=== PATIENT | female | born 1970 | race Caucasian/White ===

== ENCOUNTER 2023-04-04 06:51 | Day surgery (SDC) | payer OTHER ==
[2023-04-03 16:21] LABS: BILIRUBIN,URINE NEGATIVE (Neg); CLARITY,URINE SLIGHTLY CLOUDY (Clear); COLOR,URINE YELLOW (Yellow); GLUCOSE, URINE NEGATIVE (Neg); KETONES,URINE NEGATIVE (Neg); LEUKOCYTE ESTERASE ,URINE NEGATIVE (Neg); NITRITES, URINE NEGATIVE (Neg); OCCULT BLOOD,URINE NEGATIVE (Neg); PH,URINE 5.5 (4.8-8.0); PROTEIN,URINE NEGATIVE (Neg); UROBILINOGEN,URINE 0.2 E.U/dL (0.2-1.0)
[2023-04-03 16:24] LABS: BASOPHILS % (AUTO) 0.5 % (0-1); EOSINOPHILS # (AUTO) 0.1 X10'3 (0-0.9); EOSINOPHILS % (AUTO) 1.9 % (0-6); LYMPHOCYTES # (AUTO) 1.5 X10'3 (1.1-4.8); LYMPHOCYTES % (AUTO) 33.2 % (21-51); MEAN CORPUSCULAR HEMOGLOBIN 31.5 PG (27.0-31.0); MEAN CORPUSCULAR HGB CONC 33.2 g/dL (33.0-36.5); MEAN CORPUSCULAR VOLUME 94.8 FL (78-98); MEAN PLATELET VOLUME 6.6 FL (7.4-10.4); MONOCYTES # (AUTO) 0.3 X10'3 (0-0.9); MONOCYTES % (AUTO) 7.5 % (2-12); NEUTROPHILS # (AUTO) 2.6 X10'3 (1.8-7.7); NEUTROPHILS % (AUTO) 56.9 % (42-75); PRE OP HEMATOCRIT 36.8 % (35.0-45.0); PRE OP HEMOGLOBIN 12.2 g/dL (12.0-16.0); PRE OP PLATELET COUNT 409 X10'3 (140-440); PRE OP WHITE BLOOD COUNT 4.6 10'3 (4.8-10.8); RED BLOOD COUNT 3.89 X10'6 (4.20-5.60); RED CELL DISTRIBUTION WIDTH 13.2 % (11.5-14.5)
[2023-04-03 16:30] LABS: ALBUMIN 3.4 G/DL (3.4-5.0); ALKALINE PHOSPHATASE 59 IU/L (46-116); BLOOD UREA NITROGEN 23 MG/DL (7-18); BUN/CREATININE RATIO 20.7 (10.0-20.0); CALCIUM 8.8 MG/DL (8.5-10.1); CHLORIDE 107 MMOL/L (99-107); CREATININE 1.11 MG/DL (0.40-0.90); PRE OP ALT 27 U/L (30-65); PRE OP ANION GAP 7 (8-16); PRE OP AST 15 U/L (10-37); PRE OP BILIRUB, TOTAL 0.5 MG/DL (0.0-1.0); PRE OP GLUCOSE 117 MG/DL (70-104); PRE OP POTASSIUM 3.8 MMOL/L (3.4-5.1); PRE OP SODIUM 143 MMOL/L (135-145); TOTAL CARBON DIOXIDE 29.5 MMOL/L (24-32); TOTAL PROTEIN 6.8 G/DL (6.4-8.2); eGFR 51 ML/MIN
[2023-04-03 16:41] LABS: UA COLLECTION TYPE CLN CATCH MIDSTREAM
[2023-04-03 16:42] LABS: BACTERIA,URINE FEW /HPF (Neg); MUCUS STRANDS MODERATE /LPF (Neg); RBC,URINE NONE SEEN /HPF (0-2); SQUAMOUS EPITHELIAL CELL,UR FEW /LPF (FEW); WBC,URINE 0-4 /HPF (0-4)
[2023-04-04] VITALS (11 sets, daily range): BP systolic 108–125; BP diastolic 72–83; PULSE 78–105; RESP 8–18; TEMP 98.2; O2SAT 93–100
[~2023-04-04] VITALS: Ht 165.1 cm; Wt 89.0 kg
[~2023-04-04 06:51] MED LIST: DIPH25CA83 PO; NAPR220T67 PO; TRAZ-256 PO
[2023-04-04] MEDS ORDERED: ringers solution, lacted 1,000 ML IV SCH ×2 (07:32→08:30)
[2023-04-04] MEDS ORDERED: clindamycin-Cleocin 900mg/D5W 50 ML IV ONE (07:32)
[2023-04-04] MEDS ORDERED: famotidine 20mg tablet PO ONE (07:32)
[2023-04-04] MEDS ORDERED: sevoflurane 250ml liquid IH ONE (07:40)
[2023-04-04] MEDS ORDERED: gentamicin inj 350 MG in normal saline 100ml IV soln 91.25 ML IV ONE (08:20)
[2023-04-04] MEDS ORDERED: proCHLORperazine 10 MG/2 ml inj IV PRN (08:30)
[2023-04-04] MEDS ORDERED: ondansetron/PF 4mg/2ml inj IV PRN (08:30)
[2023-04-04] MEDS ORDERED: morphine 4 MG/ML inj SYRINge IV PRN (08:30)
[2023-04-04] MEDS ORDERED: morphine 2 MG/ML inj. syringe IV PRN (08:30)
[2023-04-04] MEDS ORDERED: meperidine/PF 25mg/ml syringe IV PRN ×3 (08:30)
[2023-04-04] MEDS ORDERED: LIDOcaine 1% (10mg/ml) 2ml vial ONE (08:32)
[2023-04-04] MEDS ORDERED: midazolam 1 mg/ML 2ml injection ONE (08:39)
[2023-04-04] MEDS ORDERED: fentaNYL/PF 50MCG/1 ML 2ML syringe ONE (08:39)
[2023-04-04] MEDS ORDERED: ondansetron/PF 4mg/2ml inj ONE (08:41)
[2023-04-04] MEDS ORDERED: propofol inj 20 ML IV ONE (08:41)
[2023-04-04] MEDS ORDERED: LIDOcaine 2% (20mg/ml) 5ml vial ONE (08:41)
[2023-04-04] MEDS ORDERED: rocuronium 10mg/ml inj IV ONE (08:41)
[2023-04-04] MEDS ORDERED: dexamethasone sod phosphate 4mg/ml inj. ONE (08:41)
[2023-04-04] MEDS ORDERED: glycopyrrolate 0.2mg/ml inj ONE (09:10)
[2023-04-04] MEDS ORDERED: neostigmine methylsulfate 1 MG/ML 10ml vial ONE (09:10)
[2023-04-04] MEDS ORDERED: sugammadex 200mg/2ml injection IV ONE (09:12)
--- NOTE | 2023-04-04 09:38 | NUR ---
Received from OR via jin, accompanied by Anesthesiologist Onael and report given by Anesthesiolgist. Pt is awake and responsive. Arrived on SM 100% fio2, o2 sat 100%. VS stable. States 08/28 pain denies need for pain medication. LR 100cc running in Lft. PIV. Pt states is comfortable. Pad in perineal area no bleeding present. Will continue to monitor patient. Addendum: 04/04/23 at 0942 by Caitlyn Awad RN Amended: Links added.
--- NOTE | 2023-04-04 10:43 | NUR ---
Pt A/O, denied pain, VSS, pad CDI, ambulated to vehicle without incident, taken home by friend Danielle. Addendum: 04/04/23 at 1045 by Caitlyn Awad RN Amended: Links added.
== END 2023-04-04 10:18 | disposition home or self-care (01) ==
LOC: PAS 06:51
PROVIDERS: ATTEND Obstetrics & Gynecology Obstetrics
DX: N95.0 Postmenopausal bleeding (principal); M19.90 Unspecified osteoarthritis, unspecified site; N18.30 Chronic kidney disease, stage 3 unspecified; Z85.3 Personal history of malignant neoplasm of breast; Z96.612 Presence of left artificial shoulder joint; Z90.49 Acquired absence of other specified parts of digestive tract; Z98.890 Other specified postprocedural states; Z88.0 Allergy status to penicillin; Z88.1 Allergy status to other antibiotic agents; Z79.899 Other long term (current) drug therapy
CPT/HCPCS: 36415; 58558; 71046; 80053; 81001; 82948; 85025; 86885; 86900; 86901; 93005; A6258; J1100; J2250; J2405; J2704; J3010; J3490; J7030; J7120; Z7506; Z7512; A4355; A4618; A7000; J2710

== ENCOUNTER 2024-09-10 06:30 | Outpatient (CLI) | payer OTHER | END 2024-09-10 23:59 | disposition home or self-care (01) | LOC: MRI02 06:30 | PROVIDERS: ATTEND Family Medicine | DX: S49.91XA Unspecified injury of right shoulder and upper arm, initial encounter (principal); M51.369 Other intervertebral disc degeneration, lumbar region without mention of lumbar back pain or lower extremity pain; M22.42 Chondromalacia patellae, left knee; M47.817 Spondylosis without myelopathy or radiculopathy, lumbosacral region; M48.061 Spinal stenosis, lumbar region without neurogenic claudication; M25.462 Effusion, left knee; M71.22 Synovial cyst of popliteal space [Baker], left knee; M75.51 Bursitis of right shoulder; M19.011 Primary osteoarthritis, right shoulder; M25.811 Other specified joint disorders, right shoulder; M65.811 Other synovitis and tenosynovitis, right shoulder; M54.50 Low back pain, unspecified; X58.XXXA Exposure to other specified factors, initial encounter; Y93.89 Activity, other specified; Y92.89 Other specified places as the place of occurrence of the external cause; Y99.8 Other external cause status | CPT/HCPCS: 72148; 73221; 73721 ==

== ENCOUNTER 2025-07-26 08:34 | Outpatient (CLI) | payer BC ==
[2025-07-26] MEDS ORDERED: iohexol 300mg/ml 100ml inj. ONE (09:21)
--- NOTE | 2025-07-26 11:25 | RADIOLOGY REPORT ---
CLINICAL HISTORY: INTESTINAL ADHESIONS [BANDS] WITH COMPLETE OBSTRUCTION TECHNIQUE: CT of the abdomen and pelvis was performed without IV contrast. This exam was performed according to our departmental dose optimization program. Up-to-date CT equipment and radiation dose reduction techniques are utilized as appropriate. CTDI 13 DLP 692 COMPARISON: None FINDINGS: Abdomen/Pelvis: The spleen, adrenal glands, kidneys, liver, pancreas, uterus, and bladder are unremarkable. The gallbladder is absent. The abdominal aorta is normal in course and caliber. There are no significant atherosclerotic calcifications. There is no free intraperitoneal air or fluid. There is no enlarged abdominal pelvic lymph node. There is no bowel wall thickening or dilatation. The probable appendix is normal. Regardless, there is no focal inflammatory process in its expected location. There is colonic diverticulosis, [id number] at the sigmoid segment. Other: The imaged lower thorax demonstrates minimal atelectatic changes at both lung bases. No acute osseous abnormality is evident. Impression: No acute CT abnormality in the abdomen / pelvis. Mild sigmoid colon diverticulosis.
== END 2025-07-26 23:59 | disposition home or self-care (01) ==
LOC: RAD 08:34
PROVIDERS: ATTEND Internal Medicine Gastroenterology
DX: K57.30 Diverticulosis of large intestine without perforation or abscess without bleeding (principal); K56.52 Intestinal adhesions [bands] with complete obstruction; R19.5 Other fecal abnormalities
CPT/HCPCS: 74177; Q9967